=== PATIENT | male | born 1975 | race Caucasian/White ===

== ENCOUNTER 2019-02-27 07:55 | Day surgery (SDC) | payer OTHER ==
[2019-02-25 18:04] VITALS: BMI 33.6
[2019-02-27] MEDS ORDERED: MIDAZOLAM HCL 2 MG/2 ML SINGLE DOSE VIAL ONE (08:45)
[2019-02-27] MEDS ORDERED: MORPHINE SULFATE 10 MG/1 ML *VIAL ONE (09:00)
[2019-02-27] MEDS ORDERED: PROPOFOL 20 ML ONE ×2 (09:27)
[2019-02-27] MEDS ORDERED: ONDANSETRON 4 MG/2 ML VIAL ONE ×2 (09:38→10:40)
[2019-02-27] MEDS ORDERED: DEXAMETHASONE SOD PHOSPHATE 4 MG/1 ML VIAL ONE (09:38)
[2019-02-27] MEDS ORDERED: KETOROLAC TROMETHAMINE 30 MG/1 ML VIAL ONE (09:38)
[2019-02-27] MEDS ORDERED: ceFAZolin SODIUM 1 GM VIAL ONE ×2 (09:38)
[2019-02-27] MEDS ORDERED: BUPIVACAINE HCL/PF 0.5% (5MG/ML) 10 ML VIAL IJ ONE ×2 (09:49→10:00)
[2019-02-27] MEDS ORDERED: PROMETHAZINE HCL 25 MG/1 ML VIAL IVPUSH PRN (10:20)
[2019-02-27] MEDS ORDERED: ONDANSETRON 4 MG/2 ML VIAL IVPUSH PRN (10:20)
[2019-02-27] MEDS ORDERED: oxyCODONE HCL 5 MG TABLET PO PRN (10:20)
[2019-02-27] MEDS ORDERED: BUPIVACAINE HCL/PF 0.5% (5MG/ML) 10 ML VIAL ONE (10:37)
[2019-02-27 11:40] VITALS: TEMP 98
--- NOTE | 2019-02-27 12:41 | OP ---
DATE OF OPERATION: 02/27/2019 PREOPERATIVE DIAGNOSIS: Torn medial meniscus to the right knee. POSTOPERATIVE DIAGNOSES: 1. Torn medial and lateral meniscus to the right knee. 2. Extensive joint debris. 3. 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 4. Hypertrophic synovium. PROCEDURES PERFORMED: 1. Operative arthroscopy of the right knee with partial medial and lateral meniscectomy with: 2. Extensive joint debridement. 3. Chondral shavings of the articular surface of the patella, chondroplasty. 4. Extensive partial synovectomy. SURGEON: Jeffry Mcgrath MD EMBROIDERY ASSISTANT: ROSY Montanez ANESTHESIA: Mac Faust MD, general anesthesia. DESCRIPTION OF PROCEDURE: The procedure consisted of the patient being brought into the operating room and gently transferred from the stretcher to the OR table with all bony prominences well padded. The right leg was prepared and draped in a sterile fashion. The patient was given intravenous antibiotics and copious irrigation throughout the procedure to minimize risk for infection. A complete risk, benefit, alternative discussion was conducted with the patient, which was inclusive of, but not limited to, infection, bleeding, , paralysis, increased pain, need for repeat surgery. Patient asked questions, understood the procedure, and desired to proceed with surgical treatment. Following a sterile preparation and draping of the right leg, the leg was exsanguinated using a rubber Esmarch bandage and the tourniquet inflated to 350 mmHg. It should be noted that prior to initiation of the procedure and exsanguination, an appropriate time-out was performed, which was inclusive of, but not limited to, type of surgery, site of surgery, surgeon, and anesthesiologist. The leg was draped and prepared, and medial and lateral portals were used to introduce the arthroscope and arthroscopic instruments. The knee was examined. There was noted to be hypertrophic synovium in the suprapatellar pouch, and extensive partial synovectomy was performed. Medial and lateral gutters were without plica or loose body. The inferior surface of the patella had damage consistent with chondromalacia, and this was smoothed using shaver and radiofrequency wand. A chondroplasty was performed. Medial meniscus was found to have a tear of the posterior horn, and this was resected using shaver and radiofrequency wand. Intercondylar region was noted to be joint debris, and a joint debridement was performed. Cruciate ligaments were found to be intact. The debridement was noted to be an extensive debridement due to the extensive debris accumulating in the intercondylar region. The lateral meniscus was examined. There was noted to be tearing of the lateral meniscus in the posterior horn, and this was resected using shaver and radiofrequency wand. The knee was then copiously irrigated with sterile saline irrigant. The wounds were closed with 4-0 undyed Vicryl followed by Steri-Strips, Xeroform, 4 x 4's, sterile Webril, DELVIS bandages, and a knee immobilizer. Tourniquet was deflated after approximately 20 minutes of tourniquet time. There were no intraoperative complications. Heber [id number]
[2019-02-27 13:25] VITALS: BP 108/80; PULSE 79
== END 2019-02-27 13:15 | disposition home or self-care (01) ==
LOC: FASU 07:55
PROVIDERS: ATTEND Orthopaedic Surgery
PROC: 0SBC4ZZ Excision of Right Knee Joint, Percutaneous Endoscopic Approach (ICD-10-PCS; 2019-02-27)
PROC: 0SBC4ZZ Excision of Right Knee Joint, Percutaneous Endoscopic Approach (ICD-10-PCS; 2019-02-27)
PROC: 0SBC4ZZ Excision of Right Knee Joint, Percutaneous Endoscopic Approach (ICD-10-PCS; principal; 2019-02-27 09:00)
DX: S83.241A Other tear of medial meniscus, current injury, right knee, initial encounter (principal); S83.281A Other tear of lateral meniscus, current injury, right knee, initial encounter; M25.861 Other specified joint disorders, right knee; M22.41 Chondromalacia patellae, right knee; M67.261 Synovial hypertrophy, not elsewhere classified, right lower leg
CPT/HCPCS: 94760; 97116-GP